=== PATIENT | female | born 1945 | race Caucasian/White ===

== ENCOUNTER → 2020-11-08 14:41 | Outpatient (CLI) | payer MEDICARE, OTHER, SELFPAY ==
--- NOTE | ~2020-11-08 | MR_ITS ---
EXAMINATION: MR lumbar spine wo con EXAM DATE: 11/08/2020 15:35 INDICATION: Lumbar radiculopathy. Left leg pain. TECHNIQUE: Multi-sequential, multiplanar MR images of the lumbar spine were obtained without contrast . Sagittal T1, T2, T2 fat saturation images. Axial T2 weighted images. There is no prior study for comparison. FINDINGS: Moderate to severe loss of the L1-L3 disc heights, mild to moderate at the levels below. Th ere is moderate thoracolumbar levoscoliosis. There are no suspicious marrow signal abnormalities. The re is 5 mm anterolisthesis L5 on S1. The conus medullaris terminates at the T12-L1 level and has norm al signal intensity and morphology. Paraspinal soft tissue is unremarkable. Level by level evaluation: T12-L1: Disc does not extend beyond the endplate margin. Facet arthropathy: Mild. Neural foraminal stenosis: No stenosis. Central canal stenosis: No stenosis. L1-L2: There is a mild diffuse disc bulge. Facet arthropathy: Mild. Neural foraminal stenosis: No stenosis. Central canal stenosis: No stenosis. L2-L3: There is a mild to moderate diffuse disc bulge. Facet arthropathy: Mild to moderate. Neural foraminal stenosis: Mild right. Central canal stenosis: Mild. L3-L4: There is a mild to moderate diffuse disc bulge. Facet arthropathy: Moderate . Ligamentum flavum enlargement. Neural foraminal stenosis: Mild bilateral. Central canal stenosis: Mild. L4-L5: [id number] Facet arthropathy: Severe . Ligamentum flavum enlargement. Neural foraminal stenosis: Moderate bilateral left greater than right. Central canal stenosis: Moderate. L5-S1: There is a moderate diffuse disc bulge. Facet arthropathy: Severe. Neural foraminal stenosis: Moderate left. Central canal stenosis: Mild to moderate. Left lateral recess stenosis. IMPRESSION: 1. Moderate thoracolumbar levoscoliosis. 2. Moderate to severe lumbar spondylosis. Reviewed, dictated and finalized at location A. T OIL OPERATOR
== END ==
PROVIDERS: Visit Provider Nurse Practitioner Adult Health
DX: M54.16 Radiculopathy, lumbar region (principal); M41.85 Other forms of scoliosis, thoracolumbar region; M47.816 Spondylosis without myelopathy or radiculopathy, lumbar region
CPT/HCPCS: 72148

== ENCOUNTER 2025-06-29 17:03 | Outpatient (NON) | payer MEDICARE, OTHER, SELFPAY ==
--- OUTSIDE RECORDS SUMMARY | 2025-06-29 17:12 | XMS_ITS | Encounter Summary ---
Author Organization [facility] Address [address] [place] [address] Phone Care Team Providers Care Clerical Transcriber Name Role Phone Rylee Jade MD Primary Care Provider Emily Gamez DO Primary Care Provider [phone] Sarah Panchal OEM SALES MANAGER Unavailable Unavailab Matteo Juarez PAC Primary Care Provider + [phone] Leeanne Epstein RN Unavailable Unavailable Reason for Visit * Reason Comments Medication Refill Encounter Details Date Type Department Care Team (Late st Contact Info) Description 06/23/2023 Refill [facility] Medical Group - Family Medicine [facility] [address] [place] [phone] Gladys Potts, HEALTH NURSE, HORSE TRAINER [address] [place] [address] Medication Refill Social History Tobacco Use Types Packs/Day Years Used Date Smoking Tobacco: Former Smokeless Tobacco: Never Alcohol Use Standard Drinks/Week Comments Yes 2 (1 standard drink = 0.6 oz pur e alcohol) socially PHQ-2 Answer Date Recorded Total Score - Questions 1-9 0 06/03 Sexually Active Control Partners Comments Not Currently Comments No Sex and Gender Information Value Date Recorded Sex Assigned at Not on file Legal Sex Female 6:56 PM CDT Gender Identity Not on file Sexual Orientation Not on file documented as of this encounter Miscellaneous Notes * Telephone Encounter - Sehr, Sasha L, RN - 06/23/2023 3:26 PM CDT Medication failed the protocol, provider to review and approve the medication order if appropriate. Requested Prescriptions Pending Prescriptions Disp Refills hydrOXYzine (ATARAX) 10 MG Tablet [Pharmacy Med Name: HYDROXYZINE HCL 10MG TABLETS] 30 Tablet 3 Sig: TAKE 1 TABLET BY MOUTH EVERY 6 HOURS NEEDED FOR ANXIETY Not Delegated - Off Protocol Failed - 06/23/2023 11:24 AM Failed - This refill cannot be delegated Passed - Visit with relevant provider in past 12 months or upcoming 90 days Recent Visits Date Type Provider Dept 03/17/23 Office Visit Gladys Potts APRN, HORSE TRAINER [facility] 10/16/22 Telemedicine Dimitris Kwok APRN, HORSE TRAINER [facility] 09/05/22 Office Visit Amberly Salazar [facility] 08/21/22 Office Visit Manny Corrigan MD [facility] [place] Showing recent visits within past 365 days and meeting all other requirements Future Appointments Date Type Provider Dept 07/17/23 Appointment Rylee Jade MD [facility] Showing future appointments within next 90 days and meeting all other requirements Escitalopram Oxalate 5 MG Tablet [Pharmacy Med Name: ESCITALOPRAM 5MG TABLETS] 90 Tablet 1 Sig: TAKE 1 TABLET BY MOUTH DAILY SSRI (6 Month Refill Only) Protocol Passed - 06/23/2023 11:43 AM Passed - Visit with relevant provider in past 6 months or upcoming 90 days Recent Visits Date Type Provider Dept 03/17/23 Office Visit Gladys Potts APRN, HORSE TRAINER [facility] Showing recent visits within past 182 days and meeting all other requirements Future Appointments Date Type Provider Dept 07/17/23 Appointment Rylee Jade MD [facility] [place] Showing future appointments within next 90 days and meeting all other requirements Passed - Patient has established therapy with SSRI for at least 6 months Passed - Has an encounter in the past 6 months with a depression, anxiety, adjustment disorder, OCD, or PTSD visit diagnosis documented in this encounter Plan of Treatment Upcoming Encounters Date Type Department Care Team (Late st Contact Info) Description 05/08/2026 8:00 AM CDT Lab [facility] [place] [address] [place] [address] [facility] 05/15/2026 1:30 PM CDT Office Visit [facility] [place] [address] [place] [address] Matteo Colon PAC [address] [place] [address] documented as of this encounter Visit Diagnoses Diagnosis Anxiety Anxiety state, unspecified documented in this encounter Additional Health Concerns Assessment Noted Time PHQ-9 Depression Total Score: 0 07/05/20 21 9:00 AM CDT documented as of this encounter Care Teams Clerical Transcriber Relationship Specialty Start Date End Date Rylee Jade MD PCP - General Family Medicine 10/10/15 03/09/24 Emily Gamez DO [address] [address] PCP - General Family Medicine 03/10/24 05/04/25 Matteo Colon PAC [address] [place] [address] PCP - General Physician Compounding Assistant 05/05/25 Sarah Panchal LSW [place] Psychologists Basket Sorter 12/06/24 12/06/24 Leeanne Epstein RN [place] Nurse Basket Sorter 06/09/25 06/09/25 documented as of this encounter
--- OUTSIDE RECORDS SUMMARY | 2025-06-29 17:12 | XMS_ITS | Encounter Summary ---
Author Organization [facility] Address [address] [place] [address] Phone Care Team Providers Care Cabinet Abrasive Sandblaster Name Role Phone Rylee Jade MD Primary Care Provider [phone] Emily Gamez DO Primary Care Provider [phone] Sarah Panchal LOTTERY MANAGER Unavailable Unavailab Matteo Juarez PAC Primary Care Provider + [phone] Leeanne Epstein RN Unavailable Unavailable Reason for Visit * Reason Comments Medication Refill Encounter Details Date Type Department Care Team (Late st Contact Info) Description 07/17/2023 Refill [facility] Medical Group - Family Medicine [facility] [address] [place] [phone] [place] [address] [place] [address] Medication Refill Social History Tobacco Use Types Packs/Day Years Used Date Smoking Tobacco: Former Smokeless Tobacco: Never Alcohol Use Standard Drinks/Week Comments Yes 2 (1 standard drink = 0.6 oz pur e alcohol) socially PHQ-2 Answer Date Recorded Total Score - Questions 1-9 0 06/03 Education Answer Date Recorded What is the highest level of school you have completed or the highest degree you have received? 12th grade 07/17/2023 Sexually Active Control Partners Comments Not Currently Comments No Sex and Gender Information Value Date Recorded Sex Assigned at Not on file Legal Sex Female 6:56 PM CDT Gender Identity Not on file Sexual Orientation Not on file COVID-19 Exposure Response Date Recorded In the last 10 days, have yo u been in contact with someone who was confirmed or suspected to have Coronavirus/COVID-19? No / Unsure 07/17/2023 10:16 AM CDT documented as of this encounter Miscellaneous Notes * Telephone Encounter - Sasha Ward RN - 07/17/2023 1:40 PM CDT Images from the original note were not included. buPROPion HCl Dispensed Days Supply Quantity Provider Pharmacy BUPROPION HYDROCHLORIDE ER (XL) 150 MG TB24 07/15/2023 90 90 Tablet Rylee Jade MD [facility] #... BUPROPION HYDROCHLORIDE ER (XL) 150 MG TB24 04/01/2023 90 90 Tablet Rylee Jade MD [facility] #... documented in this encounter Plan of Treatment Upcoming Encounters Date Type Department Care Team (Late st Contact Info) Description 05/08/2026 8:00 AM CDT Lab [facility] [place] [address] [place] [phone] [facility] 05/15/2026 1:30 PM CDT Office Visit [facility] [place] [address] [place] [address] Matteo Colon PAC [address] [place] [phone] documented as of this encounter Visit Diagnoses Diagnosis Recurrent major depressive disorder, in partial remission (HCC) documented in this encounter Additional Health Concerns Assessment Noted Time PHQ-9 Depression Total Score: 0 07/05/20 21 9:00 AM CDT documented as of this encounter Care Teams Cabinet Abrasive Sandblaster Relationship Specialty Start Date End Date Rylee Jade MD PCP - General Family Medicine 10/10/15 03/09/24 Emily Gamez DO 2 [facility] [address] [place] [address] PCP - General Family Medicine 03/10/24 05/04/25 Matteo Colon, [facility] [address] [place] [address] PCP - General Physician Health And Wellness Coordinator 05/05/25 Sarah Panchal, [place] Convict Guard Pointer Helper 12/06/24 12/06/24 Leeanne Epstein, RN [place] Nurse Pointer Helper 06/09/25 06/09/25 documented as of this encounter
--- OUTSIDE RECORDS SUMMARY | 2025-06-29 17:12 | XMS_ITS | Encounter Summary ---
Author Organization [facility] Address [address] [place] [address] Phone Care Team Providers Care Bonded Structures Repairer Name Role Phone Rylee Jade MD Primary Care Provider Emily Gamez DO Primary Care Provider [phone] Sarah Panchal LIVESTOCK BUYER Unavailable Unavailab Matteo Juarez PAC Primary Care Provider [phone] Leeanne Epstein RN Unavailable Unavailable Reason for Visit * Reason Comments Medication Refill Encounter Details Date Type Department Care Team (Late st Contact Info) Description 05/27/2023 Refill [facility] Medical Group - Family Medicine [facility] [address] [place] [phone] [place] [address] [place] [phone] Medication Refill Social History Tobacco Use Types [...] suspected to have Coronavirus/COVID-19? No / Unsure 05/10/2023 11:48 AM CDT documented as of this encounter Miscellaneous Notes * Telephone Encounter - Sasha Ward RN - 05/27/2023 2:01 PM CDT Medication failed the protocol, provider to review and approve the medication order if appropriate. Requested Prescriptions Pending Prescriptions Disp Refills diphenoxylate-atropine (LOMOTIL) 2.5-0.025 MG Tablet [Pharmacy Med Name: DIPHENOXYLATE/ATROPINE 2.5MG TABS] 60 Tablet Sig: TAKE 1 TABLET BY MOUTH TWICE DAILY NEEDED FOR DIARRHEA Not Delegated - Anti-Diarrheals Protocol Failed - 05/27/2023 10:52 AM Failed - This refill cannot be delegated Passed - Visit with relevant provider in past 12 months or upcoming 90 days Recent Visits Date Type Provider Dept 03/17/23 Office Visit Gladys Potts APRN, TECHNICAL SOLUTIONS CONSULTANT [facility] 10/16/22 Telemedicine Dimitris Kwok APRN, JUL[facility] 09/05/22 Office Visit Amberly Salazar PAC [facility] 08/21/22 Office Visit Manny Corrigan MD [facility] [place] 06/12/22 Office Visit Amberly Salazar, [facility] [place] Showing recent visits within past 365 days and meeting all other requirements Future Appointments Date Type Provider Dept 07/17/23 Appointment Rylee Jade MD [facility] [place] Showing future appointments within next 90 days and meeting all other requirements documented in this encounter Plan of Treatment Upcoming Encounters Date Type Department Care Team (Late st Contact Info) Description 05/08/2026 8:00 AM CDT Lab [facility] [address] [address] [facility] 05/15/2026 1:30 PM CDT Office Visit [facility] [place] [address] [place], [place] [address] [place] [phone] Matteo Colon, PAC [address] [place] [address] documented as of this encounter Visit Diagnoses Diagnosis Irritable bowel syndrome with diarrhea Irritable bowel syndrome documented in this encounter Additional Health Concerns Assessment Noted Time PHQ-9 Depression Total Score: 0 07/05/20 21 9:00 AM CDT documented as of this encounter Care Teams Bonded Structures Repairer Relationship Specialty Start Date End Date Rylee Jade MD PCP - General Family Medicine 10/10/15 03/09/24 Emily Gamez DO [address] [address] PCP - General Family Medicine 03/10/24 05/04/25 Matteo Colon, PAC [address] [place] [address] PCP - General Physician Django Developer 05/05/25 Sarah Panchal LSW [place] Machine Egg Washer Degreasing Wheel Operator 12/06/24 12/06/24 Leeanne Epstein, RN [place] Nurse Degreasing Wheel Operator 06/09/25 06/09/25 documented as of this encounter
--- OUTSIDE RECORDS SUMMARY | 2025-06-29 17:12 | XMS_ITS | Clinical Summary ---
Author Organization [facility] Address [address] [place] [address] Care Team Providers Care Pole Inspector Name Role Phone Matteo Colon Primary Care Provider [phone] Source Comments [facility],non-owned Affiliates and Associated Physician Practices is amultiple site organization consisting of ambulatory clinics and hospital sitesin [place], [place], [place] and [place]. This disclosure is being madepursuant to the Care Everywhere program and may not contain all information available regarding this patient. Last updated 18.[facility] Allergies Active Allergy Reactions Criticality Noted Date Comments Codeine 05/15/2015 tachycardia Morphine 05/15/2015 Nausea Medications * Be aware that medications may not be up to date on this document. Alwaysverify current medications with the patient. celecoxib (CELEBREX) 200 MG capsule Take 200 mg by mouth 2 times daily Active hydroxychloroqui ne (PLAQUENIL) 200 MG tablet Take 200 mg by mouth once daily Active lisinopril (PRINIVIL;ZESTRI L) 5 MG tablet Take 5 mg by mouth once daily Active buPROPion SR 12hr (WELLBUTRIN-SR) 150 MG tablet Take 150 mg by mouth 2 times daily Active folic acid (FOLVITE) 1 MG tablet Take 1 mg by mouth once daily Active hyoscyamine CR 12hr (LEVBID) 0.375 MG tablet Take 0.375 mg by mouth every 12 hours Active therapeutic multivitamin-min erals (THERAGRAN-M) tablet Take 1 Tab by mouth daily with food Active calcium citrate-vitamin D (CITRACAL PLUS D) 315-200 MG-UNIT tablet Take 1 Tab by mouth once daily Active vitamin D, cholecalciferol, 1000 UNITS tablet Take by mouth once daily Active aspirin (ASPIRIN) 81 MG chew tablet Take 81 mg by mouth once daily Active Encounters Date Type Department Care Team Description 05/16/2025 4:10 PM CDT Office Visit [facility] [address] [facility] [place] [address] [place] [phone] Jose Martin Quintero MD Right knee pain, unspecified chronicity (Primary Dx) 05/16/2025 3:55 PM CDT Ancillary Procedure [facility] - Radiology [address] [place] [address] Jose Martin Quintero MD Right knee pain, unspecified chronicity from Last 3 Months Social History Tobacco Use Types Packs/Day Years Used Date Smoking Tobacco: Some Days Alcohol Use Standard Drinks/Week Comments No 0 (1 standard drink = 0.6 oz pur e alcohol) Comments Unknown Sex and Gender Information Value Date Recorded Sex Assigned at Not on file Legal Sex Female 4:56 AM CONTRACT ATTORNEY Gender Identity Not on file Sexual Orientation Not on file Last Filed Vital Signs Vital Sign Reading Time Taken Comments Blood Pressure 133/62 05/15/2015 3:39 PM CDT Pulse 87 05/15/2015 3:39 PM CDT Temperature 36.8 C (98.3 F) 05/15/2015 3:39 PM CDT Respiratory Rate 16 05/15/2015 3:39 PM CDT Oxygen Saturation 100% 05/15/2015 3:39 PM CDT Inhaled Oxygen Concentration - - Weight 78 kg (172 lb) 05/15/2015 3:39 PM CDT Height 165.1 cm (5' 5) 05/15/2015 3:39 PM CDT Body Mass Index 28.62 05/15/2015 3:39 PM CDT Plan of Treatment Health Maintenance Due Date Last Done Comments MEDICARE AWV 12 MONTHS 1945 DTAP/TDAP/TD VACCINES (1 - Tdap) 1965 PNEUMOCOCCAL VACCINE 50+ (1 of 2 - PCV) 1965 ZOSTER VACCINE (1 of 2) 1996 Respiratory Syncytial Virus (RSV) Vaccine Pt: or over 60 yrs (1 - 1-dose 75+ series) 2021 COVID-19 VACCINE (3 - 4-25 season) 2024 01/18/2021, 12/26/2020 DEPRESSION SCREENING 11/03/2024 INFLUENZA VACCINE (#1) 2025 , 08/11/2020, 08/28/2019, Additional history exists BONE DENSITY TESTING Completed 09/21/2013 HEPATITIS C SCREENING Completed 07/23/2023 HEPATITIS B VACCINE Aged Out No longe r eligible based on patient's age to complete this topic HIB VACCINE Aged Out No longer eligi ble based on patient's age to complete this topic HPV VACCINE Aged Out No longer eligi ble based on patient's age to complete this topic MENINGOCOCCAL (Group B) VACCINE SHARED DECISION-MAKING Aged Out No longer eligible based on patient's age to complete this topic MENINGOCOCCAL GROUPS A/C/Y/W VACCINE Aged Out No longer eligible based on patient's age to complete this topic Procedures Procedure Name Priority Date/Time Associated Diagnosis Comments XR KNEE RIGHT 3VW Routine 05/16/2025 4:1 0 PM CDT Right knee pain, unspecified chronicity from Last 3 Months Results * XR Knee Right 3Vw (05/16/2025 4:10 PM CDT) Narrative [facility] [address] - 05/16/2025 4:10 PM CDT Please see progress note in Epic for results. us Jose Martin Quintero MD DIAGNOSTIC IMAGING ORDERABLES Final Result [facility] [place] [address] from Last 3 Months Insurance MEDICARE [employer] MEDICARE [employer] Care Teams Pole Inspector Relationship Specialty Start Date End Date Matteo Colon [address] [place] [address] PCP - General 05/11/25
--- OUTSIDE RECORDS SUMMARY | 2025-06-29 17:12 | XMS_ITS | Encounter Summary ---
Author Organization [facility] Address [address] [place] [address] Phone Care Team Providers Care Poultry Inseminator Name Role Phone Rylee Jade MD Primary Care Provider Emily Gamez DO Primary Care Provider [phone] Sarah Panchal VMWARE ENGINEER Unavailable Unavailab Matteo Juarez PAC Primary Care Provider [phone] Leeanne Epstein RN Unavailable Unavailable Reason for Visit * Reason Comments Medication Refill Encounter Details Date Type Department Care Team (Late st Contact Info) Description 01/31/2023 Refill [facility] Medical Group - Family Medicine [facility] [address] [place] [phone] [place] [address] [place] [address] Medication Refill Social History Tobacco Use Types [...] Telephone Encounter - Sasha Ward RN - 01/31/2023 1:16 PM CDT Medication failed the protocol, provider to review and approve the medication order if appropriate. Requested Prescriptions Pending Prescriptions Disp Refills hydrOXYzine (ATARAX) 10 MG Tablet [Pharmacy Med Name: HYDROXYZINE HCL 10MG TABLETS] 30 Tablet 1 Sig: TAKE 1 TABLET BY MOUTH EVERY 6 HOURS NEEDED FOR ANXIETY Not Delegated - Off Protocol Failed - 01/31/2023 11:01 AM Failed - This refill cannot be delegated Passed - Visit with relevant provider in past 12 months or upcoming 90 days Recent Visits Date Type Provider Dept 10/16/22 Telemedicine Dimitris Kwok APRN, JUL[facility] [place] 09/05/22 Office Visit Amberly Salazar PAC [facility] [place] 08/21/22 Office Visit Manny Corrigan MD [facility] [place] 06/12/22 Office Visit Amberly Salazar PAC [facility] Showing recent visits within past 365 days and meeting all other requirements Future Appointments No visits were found meeting these conditions. Showing future appointments within next 90 days and meeting all other requirements documented in this encounter Plan of Treatment Upcoming Encounters Date Type Department Care Team (Late st Contact Info) Description 05/08/2026 8:00 AM CDT Lab [facility] [address] [place] [phone] [facility] 05/15/2026 1:30 PM CDT Office Visit [facility] [place] [address] [place] [phone] Matteo Colon PAC [address] [place] [address] documented as of this encounter Visit Diagnoses Diagnosis Anxiety Anxiety state, unspecified documented in this encounter Additional Health Concerns Infection Onset Date Last Indicated Resolved Time Respiratory Rule Out - RPA 02/18/2023 02/18/2023 0 02/18/2023 8:56 AM CDT Assessment Noted Time PHQ-9 Depression Total Score: 0 07/05/20 21 9:00 AM CDT documented as of this encounter Care Teams Poultry Inseminator Relationship Specialty Start Date End Date Rylee Jade MD PCP - General Family Medicine 10/10/15 03/09/24 Emily Gamez DO 2 [facility] [address] [place] [address] PCP - General Family Medicine 03/10/24 05/04/25 Matteo Colon, PAC [address] [place] [phone] PCP - General Physician Firer Portable Boiler 05/05/25 Sarah Panchal, VMWARE ENGINEER [place] Chefs Outdoor Studies Professor 12/06/24 12/06/24 Leeanne Epstein, RN [place] Nurse Outdoor Studies Professor 06/09/25 06/09/25 documented as of this encounter
--- OUTSIDE RECORDS SUMMARY | 2025-06-29 17:12 | XMS_ITS | Clinical Summary ---
Author Organization [facility] Address [address] [place] [address] Phone Care Team Providers Care [employer] Resource Teacher Name Role Phone [facility], External Provider Primary Care Provider U navailable Allergies Active Allergy Reactions Criticality Noted Date Comments Codeine Other (See Comments) 09/02/2010 Morphine Nausea and Vomiting Low 05/22/2013 Medications buPROPion XL 24 hour (WELLBUTRIN XL) 150 mg Oral tablet Take 300 mg by mouth daily mailroom courier. Active hyoscyamine SR 12 hour (LEVSINEX) 0.375 mg Oral capsule Take 0.375 mg by mouth 2 times daily as needed. Active olopatadine (PATADAY) 0.2 % OP solution Administer 1 Drop in both eyes daily. Active multivitamins-m inerals-lutein (CENTRUM SILVER) Oral Tab Take 1 Tab by mouth daily. Active Cholecalciferol , Vitamin D3, 1,000 unit Oral Tab Take by mouth. Activ e aspirin (WILFRID) 81 mg Oral Tab Take 81 mg by mouth daily. Active hydroxychloroqu ine (PLAQUENIL) 200 mg Oral tablet Take 200 mg by mouth 2 times daily. Active ibuprofen (MOTRIN) 800 mg Oral tablet Take 1 Tab by mouth every 8 hours as needed for Pain. 25 Tab 0 0 Active CELECOXIB (CELEBREX ORAL)Indication s:arthritis Take 200 mg by mouth daily. Indications: ARTHRITIS Active diphenhydrAMINE (BENADRYL) 25 mg Oral tablet Take 50 mg by mouth nightly as needed. Active estradiol-noret hindrone Acet (ACTIVELLA) 1-0.5 mg Oral tablet Take 1 Tab by mouth daily. Active OTHER Take 300 mg by mouth daily. Provider please include Medication name, dose, route and frequency Active oxyCODONE-aceta minophen (PERCOCET) 5-325 mg Oral tablet Take 1 Tab by mouth every 6 hours as needed for Pain. 15 Tab 0 3 Active Active Problems Problem Noted Date Diagnosed Date Diverticulitis of sigmoid colon 05/22/2013 Overview (05/23/2013): 05/23/2013: diverticulosis noted on CT scan 05/22/2013, bland diet, metronidazole and levafloxacin x 1 week with Percocet PRN for pain, will need outpt follow up for colonoscopy in 8 weeks Sjogren's syndrome 09/02/2010 Overview (05/23/2013): 05/23/2013: hydroxychloroquine 200 mg BID, outpt follow up with Dr Song and Opthalmology Depression 09/02/2010 Overview (05/23/2013): 05/23/2013: bupropion XL daily IBS (irritable bowel syndrome) Overview (05/23/2013): 05/23/2013: PRN hyoscyamine Arthritis Resolved Problems Problem Noted Date Diagnosed Date Resolved Date Left hip pain 09/02/2010 05/22/2013 Nausea & vomiting 09/02/2010 05/22/2013 Immunizations Immunization Administration Dates Next Due Influenza Seasonal Unspecified Formulation IM Pneumococcal conjugate, unspecified formulation 07/24/2012 Family History Medical History Relation Name Comments Diabetes Brother Healthy Daughter 1 Other Daughter 2 anorexia Healthy Daughter 3 Other Father Other Mother Healthy Sister Relation Name Status Comments Brother Alive Daughter 1 Alive Daughter 2 Daughter 3 Alive Father Mother Sister Alive Social History Tobacco Use Types Packs/Day Years Used Date Smoking Tobacco: Former Comments:twenty four years a go Alcohol Use Standard Drinks/Week Comments No 0 (1 standard drink = 0.6 oz pur e alcohol) Comments No Sex and Gender Information Value Date Recorded Sex Assigned at Not on file Legal Sex Female 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 Gender Identity Not on file Sexual Orientation Not on file Occupation Industry Job Start Date Job End Date Not on file Not on file Not on file Not on file Last Filed Vital Signs Vital Sign Reading Time Taken Comments Blood Pressure 129/69 05/23/2013 2:40 PM CDT Pulse 69 05/23/2013 2:40 PM CDT Temperature 36.6 C (97.9 F) 05/23/2013 2:40 PM CDT Respiratory Rate 18 05/23/2013 2:40 PM CDT Oxygen Saturation 99% 05/23/2013 2:40 PM CDT Inhaled Oxygen Concentration - - Weight 83.5 kg (184 lb) 05/22/2013 12:03 PM CDT Height 162.6 cm (5' 4) 05/22/2013 12:03 PM CDT Body Mass Index 31.58 05/22/2013 12:03 PM CDT Plan of Treatment Health Maintenance Due Date Last Done Comments DTAP/TDAP/TD VACCINES (1 - Tdap) 1964 PNEUMOCOCCAL VACCINE 50+ YEARS (1 of 2 - PCV) 07/29/19 65 07/24/2012 ZOSTER VACCINE (1 of 2) 1965 OSTEOPOROSIS SCREENING 2011 RSV VACCINE (60+ or ) (1 - 1-dose 75+ series) 2021 INFLUENZA VACCINE (#1) 2025 07/24/2012 Insurance MEDICARE PART A AND B [employer] Advance Directives For more information, please contact: [phone] * Full Code (Latest Code Status on File) Date Activated Date Inactivated Comments 05/22/2013 2:28 PM 05/23/2013 8:53 PM * Full Code Date Activated Date Inactivated Comments 09/02/2010 8:43 PM 09/03/2010 6:31 PM Care Teams [employer] Resource Teacher Relationship Specialty Start Date End Date [facility], External Provider [address] [place] [address] PCP - General 05/22/13
--- OUTSIDE RECORDS SUMMARY | 2025-06-29 17:13 | XMS_ITS | Encounter Summary ---
Author Organization [facility] Address [address] [place] [address] Phone Care Team Providers Care Chemical Dependency Professional Name Role Phone Rylee aJde MD Primary Care Provider [phone] Emily Gamez DO Primary Care Provider [phone] Sarah Panchal GOLF CLUB MANAGER Unavailable Unavailab Matteo Juarez PAC Primary Care Provider + [phone] Leeanne Epstein RN Unavailable Unavailable Reason for Visit * Reason Comments Medication Refill Encounter Details Date Type Department Care Team (Late st Contact Info) Description 01/29/2024 Refill [facility] - Family Medicine [facility] [address] [place] [phone] [place] [id number] [phone] Medication Refill Social History Tobacco Use Types [...] Telephone Encounter - Sasha Ward RN - 01/29/2024 11:49 AM CDT Images from the original note were not included. buPROPion HCl Dispensed Days Supply Quantity Provider Pharmacy BUPROPION HYDROCHLORIDE ER (XL) 150 MG TB24 01/25/2024 90 90 Tablet Rylee Jade MD [facility]... BUPROPION HYDROCHLORIDE ER (XL) 150 MG TB24 10/16/2023 90 90 Tablet Rylee Jade MD [facility] #... documented in this encounter Plan of Treatment Upcoming Encounters Date Type Department Care Team (Late st Contact Info) Description 05/08/2026 8:00 AM CDT Lab [facility] [place] [address] [place] [phone] [facility] 05/15/2026 1:30 PM CDT Office Visit [facility] [place] [address] [place] [address] Matteo Colon PAC [address] [place] [phone] documented as of this encounter Visit Diagnoses Diagnosis Recurrent major depressive disorder, in partial remission (HCC) documented in this encounter Additional Health Concerns Assessment Noted Time PHQ-9 Depression Total Score: 0 07/05/20 21 9:00 AM CDT documented as of this encounter Care Teams Chemical Dependency Professional Relationship Specialty Start Date End Date Rylee Jade MD PCP - General Family Medicine 10/10/15 03/09/24 Emily Gamez DO 2 [facility] [address] [address] PCP - General Family Medicine 03/10/24 05/04/25 Matteo Colon, [facility] [address] [place] [address] PCP - General Physician Horizontal Drill Operator 05/05/25 Sarah Panchal, [place] Supervisor Logging Telephone Sex Worker 12/06/24 12/06/24 Leeanne Epstein, RN [place] Nurse Telephone Sex Worker 06/09/25 06/09/25 documented as of this encounter
--- OUTSIDE RECORDS SUMMARY | 2025-06-29 17:13 | XMS_ITS | Encounter Summary ---
Author Organization [facility] Address [address] [place] [address] Phone Care Team Providers Care Warehouse Manager Name Role Phone Rylee Jade MD Primary Care Provider Emily Gamez DO Primary Care Provider [phone] Sarah Panchal TOLL COLLECTOR Unavailable Unavailab Matteo Juarez PAC Primary Care Provider + [phone] Leeanne Epstein RN Unavailable Unavailable Reason for Visit * Reason Comments Medication Refill Encounter Details Date Type Department Care Team (Late st Contact Info) Description 09/07/2022 Refill [facility] Medical [facility] - Family Medicine [facility] [address] [place] [address] Amberly Salazar PAC [address] [place] [address] Medication Refill Social History Tobacco Use Types [...] Recorded In the last 10 days, have scar redding been in contact with someone who was confirmed or suspected to have Coronavirus/COVID-19? No / Unsure 09/05/2022 2:43 PM CDT documented as of this encounter Miscellaneous Notes * Telephone Encounter - Ynes Diaz, RN - 09/09/2022 8:45 AM JET OPERATOR Refilled 09/05/2022 OPERATOR documented in this encounter Plan of Treatment Upcoming Encounters Date Type Department Care Team (Late st Contact Info) Description 05/08/2026 8:00 AM CDT Lab [facility]note 3[facility] - [place] [address] [place] [phone] [facility] 05/15/2026 1:30 PM CDT Office Visit [facility]note 3[facility] - [place] [address] [place] [address] Matteo Colon, PAC [address] [place] [address] documented as of this encounter Visit Diagnoses Diagnosis Anxiety Anxiety state, unspecified documented in this encounter Additional Health Concerns Infection Onset Date Last Indicated Resolved Time Respiratory Rule Out - RPA 02/18/2023 02/18/2023 0 02/18/2023 8:56 AM CDT Assessment Noted Time PHQ-9 Depression Total Score: 0 07/05/20 21 9:00 AM CDT documented as of this encounter Care Teams Warehouse Manager Relationship Specialty Start Date End Date Rylee Jade MD PCP - General Family Medicine 10/10/15 03/09/24 Emily Gamez DO [address] [place] [address] [address] PCP - General Family Medicine 03/10/24 05/04/25 Matteo Colon, PAC [address] [place] [phone] PCP - General Physician Director Inbound Sales 05/05/25 Sarah Panchal LSW [place] Pole Framer Machine Car Record Clerk 12/06/24 12/06/24 Leeanne Epstein, RN [place] Nurse Car Record Clerk 06/09/25 06/09/25 documented as of this encounter
--- OUTSIDE RECORDS SUMMARY | 2025-06-29 17:13 | XMS_ITS | Clinical Summary ---
Author Organization [facility] Address [address], [facility] [address] [place] [address] Phone Care Team Providers Care Bindery Machine Feeder Offbearer Name Role Phone ColonMatteo Bia PAC Primary Care Provider [phone] Allergies Active Allergy Reactions Criticality Noted Date Comments Azithromycin Other (see Comments) 10/06/2015 Stomach pain Codeine Nausea,Rash,Vomiting , Other (see Comments) Low 10/06/2015 Reaction: n, v, , , Reaction: n, v, , , Morphine Nausea,Vomiting,Othe r (see Comments) Low 10/06/2015 Reaction: n, v, , morphine Morphine And Codeine Nausea Medications lisinopril (PRINIVIL, ZESTRIL) 5 MG Tablet Take 5 mg by mouth daily. Active Aspirin 81 MG Tablet Take 81 mg by mouth daily. Active albuterol (PROVENTIL HFA, VENTOLIN HFA) 108 (90 Base) MCG/ACT Aerosol SolutionIndicat ions:Acute bronchitis, unspecified organism take 2 Puffs by inhalation every 4 hours as needed for Wheezing. 8.5 g 0 7 Active Multiple Vitamin (MULTIVITAMINS PO) Take by mouth. Activ e abatacept (ORENCIA) 250 MG Recon Soln 750 mg by Intravenous route every 28 days. Hazardous: Medication requires special safe handling and disposal. Active hyoscyamine (LEVBID) 0.375 MG TABLET SR 12 HR Take 375 mcg by mouth every 12 hours as needed. Active Calcium Citrate-Vitamin D (CITRACAL + D PO) Take by mouth. Activ e celecoxib (CeleBREX) 200 MG Capsule Take 200 mg by mouth 2 times daily. Active fluticasone (FLONASE) 50 MCG/ACT Suspension 1-2 Sprays by Nasal route daily. Use in each nostril as directed. 48 mL 1 3 Active Xiidra 5 % Solution 3 Active betamethasone dipropionate, augmented, (DIPROLENE-AF) 0.05 % Cream 3 Active hydrOXYzine (ATARAX) 10 MG TabletIndicatio ns:Anxiety Take 1 Tablet by mouth every 6 hours as needed for Anxiety. 30 Tablet 3 3 Active dicyclomine (BENTYL) 20 MG Tablet Take 20 mg by mouth every 6 hours. Active triamcinolone (KENALOG) 0.1 % Cream Apply 2 times daily. 4 Active escitalopram (LEXAPRO) 10 MG Tablet Take 1 Tablet by mouth daily. 90 Tablet 1 5 Active traMADol (ULTRAM) 50 MG TabletIndicatio ns:Rheumatoid arthritis involving multiple sites with positive rheumatoid factor (HCC) Take 1 Tablet by mouth daily as needed for Severe pain. 30 Tablet 5 Active diphenoxylate-a tropine (LOMOTIL) 2.5-0.025 MG TabletIndicatio ns:Irritable bowel syndrome with diarrhea Take 1 Tablet by mouth 4 times daily as needed for Diarrhea. 60 Tablet 5 Active chlordiazePOXID E-clidinium (LIBRAX) 5-2.5 MG CapsuleIndicati ons:Irritable bowel syndrome with diarrhea Take 1 Capsule by mouth 4 times daily (before meals and nightly). 30 Capsule 5 Active cycloSPORINE (RESTASIS) 0.05 % Emulsion 5 Active famotidine (PEPCID) 40 MG Tablet 5 Active buPROPion (WELLBUTRIN) 150 MG XL tabletIndicatio ns:Recurrent major depressive disorder, in partial remission (HCC) Take 1 Tablet by mouth every morning. 90 Tablet 1 5 Active cephALEXin (KEFLEX) 500 MG CapsuleIndicati ons:Skin of left earlobe with infection Take 1 Capsule by mouth 2 times daily for 7 days. 14 Capsule 5 06/04/20 25 Active Problems Problem Noted Date Diagnosed Date Recurrent major depressive disorder, in partial remission 05/17/2019 Sjogren's disease 10/12/2015 Overview (02/16/2018): Dr Wesley Song ([place]; [facility]) Sicca syndrome 10/12/2015 Rheumatoid arthritis involvi ng multiple sites with positive rheumatoid factor 10/12/2015 IBS (irritable bowel syndrome) 10/12/2015 Essential hypertension 10/12/2015 Vitreous detachment of left eye 10/12/2015 Encounters Date Type Department Care Team Description 06/09/2025 Patient Outreach [facility] Mammography Supervisor Management [address] [place] [id number] Leeanne Epstein, DANIEL Patient Outreach (High Risk MSSP) 05/28/2025 1:05 PM CDT Urgent Care Visit [facility] - [address] [place] [phone] Marcie Otto, SECONDARY HISTORY TEACHER, FOREIGN EXCHANGE TRADER Skin of left earlobe with infection (Primary Dx) Discharge Disposition: Discharged to home or Selfcare 05/28/2025 Travel 05/12/2025 Refill [facility] [address] [place] [phone] Matteo Colon, PAC Medication Refill 05/10/2025 Results Follow-Up [facility] [address] [place] [phone] Matteo Colon, PAC CMP (COMPREHENSIVE METABOLIC PANEL), LIPID PANEL, CBC WITH AUTO DIFFERENTIAL, THYROID SCREEN WITH REFLEX 05/09/2025 8:20 AM CDT [facility] [place] [phone] Lab, [facility] Essential hypertension; Encounter for lipid screening for cardiovascular disease Discharge Disposition: Discharged to home or Selfcare 05/09/2025 Travel 05/05/2025 1:30 PM CDT Office Visit [facility] [place] [address] [place] [place] [phone] Matteo Colon PAC Rheumatoid arthritis involving multiple sites with positive rheumatoid factor (HCC) (Primary Dx); Irritable bowel syndrome with diarrhea; Essential hypertension; Chronic pain of right knee; Encounter for lipid screening for cardiovascular disease; Encounter for immunization Discharge Disposition: Discharged to home or Selfcare 05/05/2025 Travel 04/26/2025 Telephone [facility] [place] [address] [place] [address] Matteo Colon PAC 04/01/2025 11:30 AM CDT Office Visit [facility] [place] [address] [place] [phone] Gladys Potts, SECONDARY HISTORY TEACHER, FOREIGN EXCHANGE TRADER Rheumatoid arthritis involving multiple sites with positive rheumatoid factor (HCC) (Primary Dx); Irritable bowel syndrome with diarrhea; Anxiety Discharge Disposition: Discharged to home or Selfcare 04/01/2025 Travel from Last 3 Months Immunizations Immunization Administration Dates Next Due Covid-19, Mrna, Lnp-s, Pf, 3 0 Mcg/0.3 Ml Dose (CopaCast) 01/18/2021,12/26/2020 Influenza Vaccine 08/11/2020,07/15/2017 Influenza Vaccine greater than 3 yrs 08/11/2020, 09/15/2015,07/24/2012 Influenza, High-dose, Quadrivalent 08/05/2023,,08/11/2020 Influenza, Quadrivalent, Adjuvanted 09/17/2021 Influenza, Seasonal, Injecta ble, Undefined 08/03/2018,09/05/2013,07/24/2012 Influenza, Trivalent, Adjuvanted, PF 08/06/2018 Influenza, high-dose, trivalent, PF 10/03/2024,08/28/2019,07/17/2017,08/10,08/09/2016,09/14/2015,08/13/2014 Pneumococcal PCV, Unspecifie d Formulation 07/24/2012 Pneumococcal Vaccine Adult - 23 Valent 3,07/24/2012 Pneumococcal conjugate PCV20 , polysaccharide [id number] conjugate, adjuvant, PF 05/05/2025 RSV, Bivalent, Protein Subun it Rsvpref, Diluent Reconstit (Abrysvo) 08/05/2023 TDAP Vaccine 01/30/2024,04/16/2021,08/28/2019 Tetanus Toxoid, Unspecified Formulation 04/03/2008 Zoster Vaccine Recombinant 12/04/2020,08/11/2020 Zoster Vaccine, live 08/03/2014 Family History Medical History Relation Name Comments Diabetes Brother Dementia Father Dementia Mother Relation Name Status Comments Brother Alive Father Mother Social History Tobacco Use Types Packs/Day Years Used Date Smoking Tobacco: Former Passive Smoke Exposure: Past Smokeless Tobacco: Never Tobacco Cessation:Counseling Given: No Alcohol Use Standard Drinks/Week Comments Yes 2 (1 standard drink = 0.6 oz pur e alcohol) socially [employer] Utilities Answer Date Recorded In the past 12 months has e [employer] gas, oil, or water company threatened to shut off services in your home? Patient declined 03/02/2024 Social Connection and Isolation Panel Answer Date Recorded In a typical week, how many times do you talk on the phone with family, friends, or neighbors? Patient declined 03/02/2024 Frequency of Social Gatherings with Friends and Family Not on file 03/02/2024 Attends Alevism Services Not on file 03/02 Active Member of Clubs or Organizations Not on f ile 03/02/2024 Attends Club or Organization Meetings Not on yokasta e 03/02/2024 Marital Status Not on file 03/02/2024 AUDIT-C Answer Date Recorded Q1: How often do you have a drink containing alc ohol? Patient declined 03/02/2024 Average Number of Drinks Not on file 024 Frequency of Binge Drinking Not on file 02/03 Overall Financial Resource Strain (CARDIA) Answe r Date Recorded How hard is it for you to pa y for the very basics like food, housing, medical care, and heating? Not hard at all 03/02/2024 PHQ-2 Answer Date Recorded Total Score - Questions 1-9 3 03/05 [facility] - Occupational Stress Questionnaire Answer Date Recorded Do you feel stress - tense, restless, nervous, or anxious, or unable to sleep at night because your mind is troubled all the time - these days? Patient declined 03/02/2024 Exercise Vital Sign Answer Date Recorde d On average, how many days pe r week do you engage in moderate to strenuous exercise (like a brisk walk)? 0 days Minutes of Exercise per Session Not on file 03/02/2024 Hunger Vital Sign Answer Date Recorded Within the past 12 months, y ou worried that your food would run out before you got the money to buy more. Patient declined Within the past 12 months, t he food you bought just didn't last and you didn't have money to get more. Patient declined PRAPARE - Transportation Answer Date Re corded Lack of Transportation (Medical) Not on file 03/02/2024 In the past 12 months, has l ack of transportation kept you from meetings, work, or from getting things needed for daily living? No 03/02/2024 Housing Stability Vital Sign Answer Christopher e Recorded In the last 12 months, was t here a time when you were not able to pay the mortgage or rent on time? No 03/02/20 24 Number of Places Lived in the Last Year Not on f ile 03/02/2024 In the last 12 months, was t here a time when you did not have a steady place to sleep or slept in a usp (including now)? Patient declined 03/02/2024 Education Answer Date Recorded What is the [...] Sign Reading Time Taken Comments Blood Pressure 139/80 05/28/2025 1:05 PM CDT Pulse 93 05/28/2025 1:05 PM CDT Temperature 36.9 C (98.5 F) 05/28/2025 1:05 PM CDT Respiratory Rate 16 05/28/2025 1:05 PM CDT Oxygen Saturation 96% 05/28/2025 1:05 PM CDT Inhaled Oxygen Concentration - - Weight 79.4 kg (175 lb) 05/05/2025 1:34 PM CDT Height 167.6 cm (5' 6) 05/05/2025 1:34 PM CDT Body Mass Index 28.25 05/05/2025 1:34 PM CDT Plan of Treatment Upcoming Encounters Date Type Department Care Team (Late st Contact Info) Description 05/08/2026 8:00 AM CDT Lab [facility] [place] [address] [place] [address] [facility] 05/15/2026 1:30 PM CDT Office Visit [facility] [address] [place] [address] Matteo Colon PAC [address] [place] [address] Health Maintenance Due Date Last Done Comments DEXA Bone Density 11/09/2020 11/09/2018, 09/21/2013 SARS-COV-2 Immunization ( season) 2024 10/26/2021, 01/18/2021, 12/26/2020 Influenza Immunization (#1) 07/04/202503/2024, 08/05/2023, 08/20/2022, Additional history exists Td Immunization Every 10 Years (Adults With 1 Tdap) 01/29/2034 01/30/2024, 04/16/2021, 08/28/2019 Zoster Immunization Completed 12/04/2020, 08/11/2020, 08/03/2014 Colonoscopy Discontinued 07/04/2023, 1212/2021, 12/01/2014 Colorectal Cancer Screening Discontinued Hepatitis C Virus (HCV) Screening Completed 07/23/2023, 07/09/2022, 08/08/2021 Respiratory Syncytial Virus (RSV) Immunization (Adult) Completed 08/05/2023 Mammogram Discontinued 06/16/2024, 11/03, 11/21/2022, Additional history exists Pneumococcal Immunization (50+ years) Completed 05/05/2025, 09/05/2013, 07/24/2012, Additional history exists Pneumococcal Immunization Combined Discontinued 05/05/2025, 09/05/2013, 07/24/2012, Additional history exists Cologuard Discontinued Hepatitis B Immunization Aged Out No longer eligible based on patient's age to complete this topic Human Papillomavirus (HPV) Immunization Aged Out No longer eligible based on patient's age to complete this topic Immunochemical Fecal Occult Blood Discontinued Meningococcal Immunization (ACWY) Aged Out No longer eligible based on patient's age to complete this topic Rotavirus Immunization Aged Out No lo nger eligible based on patient's age to complete this topic Procedures Procedure Name Priority Date/Time Associated Diagnosis Comments THYROID SCREEN WITH REFLEX Routine 05/09/2025 7:55 AM CDT Essential hypertension CBC WITH AUTO DIFFERENTIAL Today 05/09/2025 7:55 AM CDT Essential hypertension THYROID SCREEN WITH REFLEX Routine 05/09/2025 7:55 AM CDT Essential hypertension LIPID PANEL Today 05/09/2025 7:55 AM CDT Encounter for lipid screening for cardiovascular disease CMP (COMPREHENSIVE METABOLIC PANEL) Routine 05/09/2025 7:55 AM CDT Essential hypertension COMPLETE BLOOD COUNT (CBC) WITH DIFF Today 05/09/2025 7:55 AM CDT Essential hypertension MAMMOGRAM BILATERAL GENERIC 11/21/2022 12:00 AM DRIER AND GRINDER TENDER HM COLONOSCOPY 10/04/2022 12:00 AM DRIER AND GRINDER TENDER DEXA SCAN Routine 11/09/2018 from Last 3 Months or Most Recently Relevant to Health Maintenance Results * THYROID SCREEN WITH REFLEX (05/09/2025 7:55 AM CDT) TSH 1.763 0.300 - 5.000 mIU/L 05/09/2025 1:39 PM CDT [facility] Blood Venipuncture / Unknown 05/09/2025 7:55 AM CDT 05/09/2025 7:55 AM CDT us Matteo Colon PAC CHEMISTRY ORDERABLES Final R esult [facility] [address] [place] [address] * (ABNORMAL) CBC WITH AUTO DIFFERENTIAL (05/09/2025 7:55 AM CDT) WBC 4.47 4.00 - 12.00 10(3)/mcL 05/09/2025 12:59 PM CDT [facility] RBC 4.41 3.80 - 5.30 10(6)/mcL 05/09/2025 12:59 PM CDT [facility] HEMOGLOBIN (HGB) 13.2 12.0 - 15.8 g/dL 05/09/2025 12:59 PM CDT [facility] HEMATOCRIT (HCT) 40.7 36.0 - 47.0 % 05/09/2025 12:59 PM CDT [facility] MCV 92.3 82.0 - 96.0 fL 05/09/2025 12:59 PM CDT [facility] MCH 29.9 26.0 - 34.0 pg 05/09/2025 12:59 PM CDT [facility] MCHC 32.4 31.0 - 36.0 g/dL 05/09/2025 12:59 PM CDT [facility] PLATELET COUNT 306 140 - 440 10(3)/mcL 05/09/2025 12:59 PM CDT [facility] RDW 13.8 11.8 - 15.5 % 05/09/2025 12:59 PM CDT [facility] MPV 10.1 9.7 - 12.4 fL 05/09/2025 12:59 PM CDT [facility] NEUTROPHILS 44.3(L) 47.0 - 73.0 % 05/09/2025 12:59 PM CDT [facility] LYMPHOCYTES 34.0 18.0 - 42.0 % 05/09/2025 12:59 PM CDT [facility] MONOCYTES 10.7 4.0 - 12.0 % 05/09/2025 12:59 PM CDT [facility] EOSINOPHILS 9.2(H) 0.0 - 5.0 % 05/09/2025 12:59 PM CDT [facility] BASOPHILS 1.6(H) 0.0 - 1.0 % 05/09/2025 12:59 PM CDT [facility] IMMATURE GRANULOCYTE 0.2 0.0 - 0.4 % 05/09/2025 12:59 PM CDT [facility] Comment:Immature Granulocyte s includes Metamyelocytes, Myelocytes, and Promyelocytes. ABSOLUTE NEUTROPHILS 1.98 1.60 - 7.70 10(3)/mcL 05/09/2025 12:59 PM CDT [facility] ABSOLUTE LYMPHOCYTES 1.52 1.30 - 3.20 10(3)/mcL 05/09/2025 12:59 PM CDT [facility] ABSOLUTE MONOCYTES 0.48 0.20 - 1.00 10(3)/mcL 05/09/2025 12:59 PM CDT [facility] ABSOLUTE EOSINOPHIL 0.41(H) 0.00 - 0.40 10(3)/mcL 05/09/2025 12:59 PM CDT [facility] ABSOLUTE BASOPHILS 0.07 0.00 - 0.10 10(3)/mcL 05/09/2025 12:59 PM CDT [facility] ABSOLUTE IMMATURE GRANULOCYTE 0.01 0.00 - 0.03 10 (3) mcL. 05/09/2025 12:59 PM CDT [facility] NRBC PER 100 WBC 0 05/09/20 12:59 PM CDT [facility] Blood Venipuncture / Unknown 05/09/2025 7:55 AM CDT 05/09/2025 7:55 AM CDT us Matteo Colon PAC HEMATOLOGY ORDERABLES Final Result [facility] [address] [place] [address] * (ABNORMAL) LIPID PANEL (05/09/2025 7:55 AM CDT) CHOLESTEROL 206(H) <200 mg/dL 05/09/2025 1:25 PM CDT [facility] TRIGLYCERIDES 64 <150 mg/dL 05/09/2025 1:25 PM CDT [facility] HDL CHOLESTEROL 56 >40 mg/dL 1:25 PM CDT [facility] LDL 137(H) <130 mg/dL 05/09/2025 1:25 PM CDT [facility] VLDL 13 10 - 50 mg/dL 05/09/2025 1:25 PM CDT [facility] CHOL/HDL RATIO 3.7 0.0 - 4.4 05/09/2025 1:25 PM CDT [facility] NON-HDL CHOLESTEROL 150(H) <130 mg/dL 05/09/2025 1:25 PM CDT [facility] IS THE PATIENT REQUIRED TO BE FASTING? Yes 05/09/2025 1:25 PM CDT [facility] HAS THE PATIENT BEEN FASTING? Yes 05/09/2025 1:25 PM CDT [facility] Blood Venipuncture / Unknown 05/09/2025 7:55 AM CDT 05/09/2025 7:55 AM CDT us Matteo Colon PAC CHEMISTRY ORDERABLES Final R esult [facility] [address] [place] [address] * CMP (COMPREHENSIVE METABOLIC PANEL) (05/09/2025 7:55 AM CDT) SODIUM 140 136 - 145 mmol/L 05/09/2025 1:25 PM CDT [facility] POTASSIUM 4.4 3.5 - 5.1 mmol/L 05/09/2025 1:25 PM CDT [facility] CHLORIDE 107 98 - 107 mmol/L 05/09/2025 1:25 PM CDT [facility] CO2, VENOUS 25 22 - 30 mmol/L 05/09/2025 1:25 PM CDT [facility] ANION GAP 12.4 <18.0 mmol/L 05/09/2025 1:25 PM CDT [facility] GLUCOSE 89 70 - 99 mg/dL 05/09/2025 1:25 PM CDT [facility] BUN 10 10 - 20 mg/dL 05/09/2025 1:25 PM CDT [facility] CREATININE, BLOOD 0.83 0.60 - 1.00 mg/dL 05/09/2025 1:25 PM CDT [facility] BUN/CREATININE RATIO 12 12 - 20 ratio 05/09/2025 1:25 PM CDT [facility] TOTAL PROTEIN 6.6 6.0 - 8.0 g/dL 05/09/2025 1:25 PM CDT [facility] ALBUMIN 3.9 3.5 - 5.0 g/dL 05/09/2025 1:25 PM CDT [facility] A/G RATIO 1.4 1.0 - 2.2 05/09/2025 1:25 PM CDT [facility] CALCIUM 8.7 8.7 - 10.5 mg/dL 05/09/2025 1:25 PM CDT [facility] T BILI 0.3 0.2 - 1.2 mg/dL 05/09/2025 1:25 PM CDT [facility] SGOT (AST) 23 <43 U/L 05/09/2025 1:25 PM CDT [facility] SGPT (ALT) 15 <56 U/L 05/09/2025 1:25 PM CDT [facility] ALKALINE PHOSPHATASE 95 40 - 150 U/L 05/09/2025 1:25 PM CDT [facility] IS THE PATIENT REQUIRED TO BE FASTING? Yes 05/09/2025 1:25 PM CDT [facility] HAS THE PATIENT BEEN FASTING? Yes 05/09/2025 1:25 PM CDT [facility] GFR, ESTIMATED >60 >=60 05/09/2025 1:25 PM CDT [facility] Comment: Creatinine Clearance is the preferred criteria for selecting drug dose adjustments in renally impaired patients. The GFR is provided as additional pertinent clinical information. GFR is reported in mL/min/1.73 sq m. Calculation based on the Chronic Kidney Disease Epidemiology Collaboration (CKD- EPI) equation refit without adjustment for race. GFR, EST. >60 >=60 025 1:25 PM CDT [facility] GFR, EST. NONAFRICAN >60 >=60 05/09/2025 1:25 PM CDT [facility] Blood Venipuncture / Unknown 05/09/2025 7:55 AM CDT 05/09/2025 7:55 AM CDT us Matteo Colon PAC CHEMISTRY ORDERABLES Final R esult Performing Organization Address [facility] Co de Phone Number [facility] [address] [place] [address] * MAMMOGRAM BILATERAL MISCELLANEOUS (11/21/2022 12:00 AM DRIER AND GRINDER TENDER) 11/21/2022 us Provider Scan IMG MAMMO ORDERABLES Final Resul t Performing Organization Address City/[facility]/ZIP Co de Phone Number SCAN * HM COLONOSCOPY (10/04/2022 12:00 AM DRIER AND GRINDER TENDER) 10/04/2022 us Not On File Provider PROCEDURE/MINOR SURGICAL OR DERABLES Final Result Performing Organization Address City/[facility]/ZIP Co de Phone Number SCAN * HM DEXA SCAN (11/09/2018) Anatomical Region Laterality Modality Other Rylee Jade MD [place] - IMAGING Final Resul t from Last 3 Months or Most Recently Relevant to Health Maintenance Insurance [employer] Care Teams Bindery Machine Feeder Offbearer Relationship Specialty Start Date End Date Matteo Colon, PAC [address] [place] [address] PCP - General Physician Combination Welder 05/05/25
--- OUTSIDE RECORDS SUMMARY | 2025-06-29 17:13 | XMS_ITS | Patient Health Record ---
Author Organization [employer] Address [address] [facility] [address] [place] [address] Care Team Providers Care Cafe Aide Name Role Phone Emily Gamez DO Primary Care Provider Tanya Ventura Unavailable [phone] Allergies Allergen (clinical drug ingredient) Drug/Non Drug Allergy documented on EMR Reaction Allergy Type Onset Date Status Codeine Phosphate Rapid heartrate Drug Allergy Active morphine Morphine Sulfate Nausea Drug Allergy Active Reason For Referral No Information Medications Medication SIG (Take, Route, Frequency, Duration) Notes Start Date End Date Status hydrOXYzine HCl Acti ve Orencia Active Lisinopril Active OTC/Vitamins Porter, Gerardo Red, Zinc, Citracal, MVI Active Hyoscyamine Sulfate ER 0.375 MG TAKE 1 TABLET BY MOUTH EVERY 12 HOURS Orally every 12 hrs for 90 days Active Famotidine 40 MG 1 tablet Orally Once a day for 90 days 07/06/2024 Active Celecoxib Active Escitalopram Oxalate Active buPROPion HCl Active Immunizations Vaccine Route Administration Date Status Comme nts Influenza Vaccination Unknown 08/03/2018 Administered Influenza Vaccination Unknown 10/02/2022 Refused Pneumococcal conjugate PCV 13 Unknown 10/02/2022 Refuse d Social History Tobacco Use: Social History Observation Description Date Details (start date - stop date) Former Smoker NA - NA Tobacco Use/Smoking Question Answer Notes Are you a former smoker How long has it been since you last smoked? > 10 years Problems Problem Type SNOMED Code ICD Code Onset Dates Problem Status W/U Status Risk Notes Problem 308006491 Left lower quadrant pain (R10.32) Active confirmed This is chronic . She has had 2 CTs and a colonoscopy without a diagnosis. Suspect this may be functional. However, will proceed with SIBO breath testing at patient convenience. Continue dicyclomine PRN for now. Problem 21859705 Heartburn (R12) Active confirmed Asymptomatic on Pepcid 40 mg daily. Problem 90101754 Weight loss (R63.4) Active confirmed This is concerning but testing has been negative for malignancy. Her weight loss is likely due to decreased PO intake Problem [id number] IBS (irritable bowel syndrome) (K58.9) Active confirmed On hyoscyamine BID her abdominal cramping/well-con trolled. Is having 3-4 soft to formed bowel movements/d. Lacks alarm features of mucus or blood in her stool. Intermittent episodes of diarrhea and symptoms subside with Lomotil. Problem 181742618 Change in bowel habits (R19.4) Active confirmed Increased constipation of recent. These symptoms may be secondary to her medications. Other considerations include irritable bowel syndrome, colon polyps, colonic malignancy, hypothyroidism, or other. Vital Signs Height 65 in 08/30/2024 Weight 180 lbs 08/30/2024 BMI 29.95 kg/m2 08/30/2024 Encounters Encounter Location Date Provider Diagnosis [facility], [address] [place] [address] 07/06/2024 Tanya Garcia Heartburn R12 ; IBS (irritable bowel syndrome) K58.9 and Encounter for screening for malignant neoplasm of colon Z12.11 [facility], [address] [place] [address] 08/30/2024 Tanya Garcia IBS (irritable bowel syndrome) K58.9 ; Heartburn R12 and Encounter for screening for malignant neoplasm of colon Z12.11 [facility], [address] [place] [address] 07/06/2024 Tanya Garcia Assessments Encounter Date Diagnosis (ICD Code) Assessment Notes Treatment Notes Treatment Clinical Notes Section Notes 07/06/2024 Heartburn (ICD-10 - R12) With eating fried/acidic foods is having midepigastric burning radiating to her chest several days a week. Symptoms subside with Rolaids. Denies burning sensation in her throat, regurgitation of food/acid, sour taste in mouth or chronic cough. Will start Pepcid 40 mg daily. Will take new GERD regiment for 2 to 3 months and make a follow-up office visit. If she continues to have symptoms we will proceed with an EGD. Reviewed GERD diet and lifestyle modifications. 07/06/2024 IBS (irritable bowel syndrome) (ICD-10 - K58.9) On hyoscyamine BID and daily fiber supplement is having 3-4 soft to formed BMs/d. Intermittently having diarrhea and symptoms subside with Lomotil. Lacks alarm features of mucus or blood in her stool. Will continue on hyoscyamine twice a day. She may use Lomotil as needed for chronic diarrhea. Recommended her to continue on a fiber supplement daily. 08/30/2024 Heartburn (ICD-10 - R12) Asymptomatic on Pepcid 40 mg daily. Will continue on Pepcid 40 mg daily. If breakthrough symptoms of acid reflux occur on Pepcid she will follow up with our office and will be switched to PPI and proceed with an EGD. Reviewed GERD diet and lifestyle modifications. 08/30/2024 IBS (irritable bowel syndrome) (ICD-10 - K58.9) On hyoscyamine BID her abdominal cramping/well-cont rolled. Is having 3-4 soft to formed bowel movements/d. Lacks alarm features of mucus or blood in her stool. Intermittent episodes of diarrhea and symptoms subside with Lomotil. Will continue on hyoscyamine twice a day. She may use Lomotil as needed for chronic diarrhea. Recommended her to continue on a fiber supplement daily. 08/30/2024 Encounter for screening for malignant neoplasm of colon (ICD-10 - Z12.11) 2021 colonoscopy was unremarkable and not recommended repeating due to age. Reviewed 2021 colonoscopy report, and she was not recommended to repeat due to age. 07/06/2024 Encounter for screening for malignant neoplasm of colon (ICD-10 - Z12.11) 2021 colonoscopy was unremarkable and not recommended repeating due to age. Reviewed 2021 colonoscopy report and she was not recommended to repeat due to age. 07/06/2024 Other Patient verbalized clear understanding of plan, recommendations, and all questions were answered. She will follow up with our office with any GI concerns going forward. She will sign a release form for recent blood work to be sent to our office for review and her records. She will make a follow-up office visit in 2 to 4 months. 08/30/2024 Lyla Grimm verbalize d clear understanding of plan, recommendations, and all questions were answered. She will follow up with our office with any GI concerns going forward. She will make a follow-up office visit in 6 months/once she returns from [place]. Plan Of Treatment Pending Test Test Name Order Date Colonoscopy 10/02/2022 Initiate SIBO 11/12/2022 Insurance Providers Payer Name Payer Address Payer Phone Subscriber Number Group Number Insured Name Patient Relationship to Insured Coverage Start Date Coverage End Date Medicare E2 [address] [address] [place] [address] [id number] WallsSirisha Self - patient is the insured Health Page [address] [place] [address] [id number] Plan F Titi Sirisha Self - patient is the insured Medical (General) History Medical History History ICD Code IBS Diverticulosis Colitis GERD Hemorrhoids Rheumatoid Arthritis Hypertension Surgical History Surgery Date(Month/Year) Colonoscopy 10/2022 Total Left Hip Replacement 2017 Right Shoulder, Tendon Repair 2001 Left Shoulder, Rotator Cuff 2000 Right Knee Arthroscopy Tonsillectomy Hospitalization History Reason Date(Month/Year) Colitis 2012
--- OUTSIDE RECORDS SUMMARY | 2025-06-29 17:13 | XMS_ITS | Encounter Summary ---
Author Organization [facility] Address [address] [place] [address] Phone Care Team Providers Care Alteration Inspector Name Role Phone Rylee Jade MD Primary Care Provider [phone] Emily Gamez DO Primary Care Provider [phone] Sarah Panchal FOUR CORNER STAYER MACHINE OPERATOR Unavailable Unavailab Matteo Juarez PAC Primary Care Provider + [phone] Leeanne Epstein RN Unavailable Unavailable Reason for Visit * Reason Comments Medication Refill Encounter Details Date Type Department Care Team (Late st Contact Info) Description 10/20/2023 Refill [facility] - Family Medicine [facility] [address] [place] [id number] [place] [id number] [phone] Medication Refill Social History Tobacco Use Types [...] Telephone Encounter - Sasha Ward RN - 10/20/2023 4:43 PM CST Medication failed the protocol, provider to review and approve the medication order if appropriate. Requested Prescriptions Pending Prescriptions Disp Refills escitalopram (LEXAPRO) 10 MG Tablet [Pharmacy Med Name: ESCITALOPRAM 10MG TABLETS] 90 Tablet 1 Sig: TAKE 1 TABLET BY MOUTH DAILY SSRI (6 Month Refill Only) Protocol Failed - 10/20/2023 3:36 PM Failed - Patient has established therapy with SSRI for at least 6 months Passed - Visit with relevant provider in past 6 months or upcoming 90 days Recent Visits Date Type Provider Dept 07/17/23 Office Visit Rylee Jade MD [facility] Showing recent visits within past 182 days and meeting all other requirements Future Appointments No visits were found meeting these conditions. Showing future appointments within next 90 days and meeting all other requirements Passed - Has an encounter in the past 6 months with a depression, anxiety, adjustment disorder, OCD, or PTSD visit diagnosis MAL ENGINEER documented in this encounter Plan of Treatment Upcoming Encounters Date Type Department Care Team (Late st Contact Info) Description 05/08/2026 8:00 AM CDT Lab [facility] [address] [place] [address] [facility] 05/15/2026 1:30 PM CDT Office Visit [facility] [address] [place] [address] Matteo Colon PAC [address] [place] [address] documented as of this encounter Visit Diagnoses Not on filedocumented in this encounter Additional Health Concerns Assessment Noted Time PHQ-9 Depression Total Score: 0 07/05/20 21 9:00 AM CDT documented as of this encounter Care Teams Alteration Inspector Relationship Specialty Start Date End Date Rylee Jade MD PCP - General Family Medicine 10/10/15 03/09/24 Emily Gamez DO [facility] [address] [place] [address] PCP - General Family Medicine 03/10/24 05/04/25 Matteo Colon, PAC [address] [place] [address] PCP - General Physician Trench Digger 05/05/25 Sarah Panchal, FOUR CORNER STAYER MACHINE OPERATOR [place] Color Worker Automation Engineer 12/06/24 12/06/24 Leeanne Epstein, RN [place] Nurse Automation Engineer 06/09/25 06/09/25 documented as of this encounter
--- OUTSIDE RECORDS SUMMARY | 2025-06-29 17:13 | XMS_ITS | Clinical Summary ---
Author Organization [facility] Address [address] [place] [address] Care Team Providers Care Home Comfort Advisor Name Role Phone Karrie Song MD Unavailable Emily Gamez DO Primary Care Provider [phone] Allergies Active Allergy Reactions Criticality Noted Date Comments Codeine Nausea & Vomiting,Nausea only,Vomiting Low Reaction: n, v, , , Morphine Nausea only,Vomiting Low Reaction: n, v, , Opioids - Morphine Analogues Medications hyoscyamine sulfate (LEVSINEX) 0.375 mg 12 hr capsule Take one by mouth one time per day 0 0 9 Active omega-3 fatty acids (LOVAZA) 1 gram capsule take 2 capsule (2G) by ORAL route 2 times every day 120 4 0 Active buPROPion SR (WELLBUTRIN SR) 150 mg 12 hr tablet take 1 tablet by oral route 2 times every day 0 0 4 Active olopatadine (PATADAY) 0.2 % ophthalmic solution instill 1 drop by ophthalmic route every day into affected eye(s) 0 0 4 Active aspirin 81 mg tablet take 1 tablet by oral route every day 0 0 4 Active omega-3 fatty qfprq-kxm-jrj (MEGARED MTDBH-HTDQQ-1) 300 mg capsule 300 mg. 0 0 4 Active multivitamin tablet tablet take 1 tablet by oral route every day with food 0 0 4 Active golimumab (SIMPONI ARIA) 12.5 mg/mL solution infuse (2MG/KG) by intravenous route every 8 weeks over 3 vial 10 7 Active albuterol HFA (PROVENTIL HFA,VENTOLIN HFA) 90 mcg/actuation inhaler Inhale. 7 Active diphenhydrAMINE (diphenhydrAMIN E) 25 mg capsule Take 25 mg by mouth. Active diphenoxylate-a tropine (LOMOTIL) 2.5-0.025 mg per tabletIndicatio ns:diarrhea Take by mouth. 5 Active fluticasone (FLONASE) 50 mcg/actuation nasal spray Administer into affected nostril(s). Active oseltamivir (TAMIFLU) 75 mg capsule Take 75 mg by mouth. 7 Active escitalopram (LEXAPRO) 10 mg tablet TAKE 1 TABLET BY MOUTH EVERY DAY 7 Active lisinopril (PRINIVIL,ZESTR IL) 5 mg tablet Take 5 mg by mouth. Active folic acid (FOLVITE) 1 mg tablet Take 1 tablet (1,000 mcg total) by mouth daily. 90 tablet 3 7 Active predniSONE (DELTASONE) 5 mg tablet Take 2 tabs x5 days,1 tab x5 days,0.5 tab x5 days 18 tablet 7 Active traMADol (ULTRAM) 50 mg tablet TAKE ONE TABLET BY MOUTH TWICE DAILY NEEDED FOR PAIN 60 tablet 8 Active celecoxib (CeleBREX) 200 mg capsule Take 1 capsule (200 mg total) by mouth 2 (two) times a day. 60 capsule 2 8 Active Active Problems Problem Noted Date Diagnosed Date Vitamin D deficiency 01/29/2018 Assessment & Plan (04/28/2018 1:38 PM CDT): Will check vit d level today Assessment & Plan (01/29/2018 12:51 PM CDT): Will check a Vit D level Encounter for long-term (current) use of medicat ions 09/18/2017 Overview (01/29/2018): Quant gold neg 04/2017 CXR neg 05/2017 Failed cimzia Assessment & Plan (06/24/2018 5:07 PM CDT): Will continue to monitor w/ routine labs Assessment & Plan (04/28/2018 1:41 PM CDT): Will continue to monitor w/ routine labs Assessment & Plan (01/29/2018 12:45 PM CDT): Will continue to monitor w/ routine labs. Will check quant gold today Assessment & Plan (10/13/2017 9:52 AM PRODUCTION RECORDER): Quant gold neg 04/22/17 cxr neg 05/19 (aorta atherosclerosis) Failed cimzia Lumbago 09/16/2017 Osteoarthritis of left hip 09/10/2017 Assessment & Plan (06/24/2018 5:07 PM CDT): S/p replacement. Doing well. Rheumatoid arthritis of [facility] without rheumatoid factor 04/17/2017 Assessment & Plan (06/24/2018 5:07 PM CDT): Patient disease activity is low. She has not been on any csDMARDs for months and remains stable. She appears to be in remission. We repeated her serologies in 04/20 which showed a +PSPT. The rest of her serologies were negative. Patient is to remain off her medications for now. Discussed repeating some of her xrays at her next visit as she had erosive changes on imaging in 04/15. Will check routine labs today. Follow up in 3 mo, sooner if needed Assessment & Plan (04/28/2018 1:40 PM CDT): Patient disease activity is low. She has been off all her meds for almost 2 mo for hip surgery. She states her joints are feeling good. Denies joint pain today and morning stiffness. Patient will remain off her medications for now. Since she has been off her medications, we will repeat an AVISE to monitor for changes in her serologies. Follow up in 3 mo, sooner if needed Assessment & Plan (01/29/2018 12:55 PM CDT): Patient disease activity is high on Simponi IV. She states her joints are starting to hurt a little bit more than usual. However, her hip is her main complaint today. She will be having her next Simponi infusion February 09, pending when hip surgery will be scheduled. Patient is to continue current regimen for now. She is seeing orthopedics tomorrow in regards to her hip. We will talk w/ orthopedics in regards to her medications. If she is getting surgery in the near future, she will not have her February 09 infusion. Given burden of disease, will administer triamcinolone shot today. Patient made aware of SE of triamcinolone injection including but not limited to HTN, increase blood glucose and osteopenia with jail use of steroids Will check routine labs along w/ a quant gold. Follow up in 3 mo, sooner if needed. Pt seen w/ Greer Randall PA-C Assessment & Plan (10/13/2017 11:26 AM PRODUCTION RECORDER): Over all her CDAI is low and she seems to be tolerating the Simponi. She is planning [place] going [place] and we are sending Simponi SQ inj with her and she will go there for two months. When she comes back she will restart the infusions. She recently had a steroid injection into the L hip and this seems to be helping. I am sending a course of prednisone with her to [place] in case she has a flare. 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 SSA/SSB ab negative on AVISE testing 04/20 Assessment & Plan (04/28/2018 1:38 PM CDT): Stable. Assessment & Plan (01/29/2018 12:46 PM CDT): Stable. Drug indicated 04/09/2012 Overview (02/07/2017): LONG-TERM USE MEDS NEC Adverse reaction to substance 01/09/2010 Overview (02/05/2017): ADV EFF MED/BIOL SUB NOS Resolved Problems Problem Noted Date Diagnosed Date Resolved Date Encounter for long-term (cur rent) use of other medications 04/17/2017 10/13/2017 Immunizations Immunization Administration Dates Next Due ZOSTER LIVE 08/03/2014 Surgical History Surgery Date Site/Laterality Comments OTHER SURGICAL HISTORY 11/03/2001 - 11/02/2002 tendon repair rt shoulder OTHER SURGICAL HISTORY 11/03/2004 - 11/02/2005 orthoscopic knee surgery--rt CARPAL TUNNEL RELEASE 11/03/2004 - 11/02/2005 Carpal tunnel release OPEN REDUCTION INTERNAL FIXATION 11/03/2000 - 11/02/2001 ORIF KNEE ARTHROCENTESIS Arthrocentesis of the right knee joint OTHER SURGICAL HISTORY Shoulder rotator cuff OTHER SURGICAL HISTORY shoulder tendon repair KNEE ARTHROSCOPY Arthroscopy knee Medical History Medical History Date Comments Hx Other Medical Posterior Vitre ous Detachment Smoking previous Family History Medical History Relation Name Comments Breast cancer Neg Hx Ovarian cancer Neg Hx Thyroid cancer Neg Hx Social History Tobacco Use Types Packs/Day Years Used Date Smoking Tobacco: Former Alcohol Use Standard Drinks/Week Comments Yes 0 (1 standard drink = 0.6 oz pur e alcohol) Comments No Sex and Gender Information Value Date Recorded Sex Assigned at Not on file Legal Sex Female 8:49 AM PRODUCTION RECORDER Gender Identity Not on file Sexual Orientation Not on file Obstetrics History Para Term AB IAB SAB Ectopic Multiple Livin g Live Births 3 3 3 Date Outcome GA Total Labor Labor/2nd/3rd Weight Sex Type Anes PTL Falguni A1 A5 Name Clin Term Term Term Last Filed Vital Signs Vital Sign Reading Time Taken Comments Blood Pressure 110/72 06/24/2018 1:39 PM CDT Pulse 78 06/24/2018 1:39 PM CDT Temperature - - Respiratory Rate - - Oxygen Saturation 98% 04/12/2016 2:35 PM CDT Inhaled Oxygen Concentration - - Weight 82.1 kg (181 lb) 06/24/2018 1:39 PM CDT Height 167.6 cm (5' 6) 06/16/2024 10:34 AM CDT Body Mass Index 30.12 02/17/2018 12:37 PM CDT Plan of Treatment Health Maintenance Due Date Last Done Comments Depression Screening 1945 Fall Risk Assessment 1945 Hepatitis C Screening 1945 Hepatitis B Screening 1964 Well Visit 65+ 2011 Osteoporosis Screening-Bone Density Scan 09/21/2015 09/21/2013 Covid-19 Vaccine (3 - Pfizer risk series) 02/15/2021 01/18/2021, 12/26/2020 Influenza Vaccine (#1) 2025 , 08/11/2020, 08/28/2019, Additional history exists DTaP/Tdap/Td Vaccine (4 - Td or Tdap) 01/29/2034 01/30/2024, 04/16/2021, 08/28/2019 Pneumococcal vaccine 65+ Completed 013, 07/24/2012, 07/24/2012 Zoster Vaccine Completed 12/04/2020, 1007/2020, 08/03/2014 Breast Cancer Screening-Mammogram Discontinued 06/16/2024, 11/21/2022, 10/12/2021, Additional history exists Procedures Procedure Name Priority Date/Time Associated Diagnosis Comments SCREENING MAMMOGRAM BILATERAL W DELVIS Schedule Routine, Read Routine (OP Routine) 06/16/2024 10:40 AM CDT Screening mammogram, encounter for DEXA AXIAL SKELETON BONE DENSITY 1 OR MORE SITES Routine 09/21/2013 1:22 PM PRODUCTION RECORDER from Last 3 Months or Most Recently Relevant to Health Maintenance Results * Screening Mammogram Bilateral W Delvis (06/16/2024 10:40 AM CDT) Anatomical Region Laterality Modality Breast Bilateral Mammography 06/16/2024 1:40 PM CDT Impressions 06/16/2024 1:40 PM CDT There is no mammographic evidence of malignancy. A 1 year screening mammogram is recommended. BI-RADS: 1 - Negative. The patient has been or will be contacted. The patient will be entered into a reminder system with a target due date of 1 year for her next mammogram. Electronically signed by: Khushi Pyle M.D. Narrative 06/16/2024 1:40 PM CDT EXAMINATION: SCREENING MAMMOGRAM BILATERAL W DELVIS ORDERING HEALTHCARE PROVIDER: SELF SCREENING MAMMOGRAM HISTORY: Routine screening mammography. COMPARISON: 11/21/2022, 10/12/2021, 08/30/2020, 03/02/2019 TECHNIQUE: CC and MLO views of the bilateral breasts were obtained with digital technique using breast tomosynthesis with C view. Computer aided detection was utilized. FINDINGS: DENSITY: There are scattered fibroglandular elements in the bilateral breasts. BREASTS: There are no suspicious masses, suspicious calcifications, or other suspicious findings in either breast. There has been no suspicious interval change. us Self Screening Mammogram IMG MAMMO PROCEDURES Fi nal Result * Dexa Axial Skeleton Bone Density 1 or 2 Site (09/21/2013 1:22 PM PRODUCTION RECORDER) Anatomical Region Laterality Modality Body N/A Radiographic Ani ging 09/21/2013 1:22 PM PRODUCTION RECORDER Narrative 09/21/2013 11:48 PM PRODUCTION RECORDER vm DEXA Bone Density Axial Acc#: [id number] DATE OF EXAM: Sep 21 2013 CLINICAL HISTORY: Post menopausal. Therapeutic drug monitoring. RESULT: DXA RIGHT HIP RESULTS SUMMARY: BMD (g/cm'b2) T-score Z-score Neck 0.880 0.3 1.9 Total 0.946 0.0 1.4 DXA LEFT HIP RESULTS SUMMARY: BMD (g/cm'b2) T-score Z-score Neck 1.014 1.5 3.1 Total 1.002 0.5 1.8 DXA L-SPINE RESULTS SUMMARY: BMD (g/cm'b2) T-score Z-score L1 1.346 3.2 4.9 L2 1.426 3.6 5.5 L3 1.370 2.6 4.6 L4 1.393 3.0 5.1 Total 1.384 3.1 5.0 IMPRESSION: 1. LEFT HIP/FEMORAL NECK T-SCORE +1.5; TOTAL +0.5; EACH AN INCREASE OF 0.1 COMPARED TO NOVEMBER 13; IN NORMAL RANGE. 2. RIGHT HIP/FEMORAL NECK T-SCORE +0.3; TOTAL 0.0; NORMAL; NOT MEASURED PREVIOUSLY. 3. LUMBAR SPINE T-SCORE +3.1; AN INCREASE FROM +2.5 ON NOVEMBER 13; IN NORMAL RANGE. COMMENT: W.H[place]O[facility] defines the T-score of between -1 and -2.5 as osteopenia, the level at which there may be an increased risk of developing osteoporosis and fractures in the future. Osteoporosis is defined as T-score lower than -2.5 (significantly increased risk of fracture due to osteoporosis). T-score is a comparison to peak bone mineral density of young adult reference population. Z-score is a comparison to bone mineral density of sex and age group population. Interpreting Physician: ELENI MARTINEZ M.D. Read on: Sep 21 2013 1:51P Transcribed by: [email or web address] On: Sep 21 2013 3:00P Approved Electronically by: ELENI MARTINEZ M.D. on: Sep 21 2013 11:48P Ordering DR: KARRIE SONG Attending DR: KARRIE SONG Procedure Note Provider, MD Suman - 02/26/2017 DEXA Bone Density Axial Acc#: [id number] DATE OF EXAM: Sep 21 2013 CLINICAL HISTORY: Post menopausal. Therapeutic drug monitoring. RESULT: DXA RIGHT HIP RESULTS SUMMARY: BMD (g/cm'b2) T-score Z-score Neck 0.880 0.3 1.9 Total 0.946 0.01.4 DXA LEFT HIP RESULTS SUMMARY: BMD (g/cm'b2) T-score Z-score Neck 1.014 1.5 3.1 Total 1.002 0.51.8 DXA L-SPINE RESULTS SUMMARY: BMD (g/cm'b2) T-score Z-score L1 1.346 3.2 4.9 L2 1.426 3.6 5.5 L31.370 2.6 4.6 L4 1.393 3.0 5.1 Total 1.384 3.1 5.0 IMPRESSION: 1. LEFT HIP/FEMORAL NECK T-SCORE +1.5; TOTAL +0.5; EACH AN INCREASE OF 0.1 COMPARED TO NOVEMBER 13; IN NORMAL RANGE. 2. RIGHT HIP/FEMORAL NECK T-SCORE +0.3; TOTAL 0.0; NORMAL; NOT MEASUREDPREVIOUSLY. 3. LUMBAR SPINE T-SCORE +3.1; AN INCREASE FROM +2.5 ON NOVEMBER 13; INNORMAL RANGE. COMMENT: W.H.O. defines the T-score of between -1 and -2.5 as osteopenia, thelevel at which there may be an increased risk of developing osteoporosisand fractures in the future. Osteoporosis is defined as T-score lowerthan -2.5 (significantly increased risk of fracture due to osteoporosis).T-score is a comparison to peak bone mineral density of young adultreference population. Z-score is a comparison to bone mineral density ofsex and age group population. Interpreting Physician: ELENI MARTINEZ M.D. Read on: Sep 21 20131:51P Transcribed by: [email or web address] On: Sep 21 2013 3:00P Approved Electronically by: ELENI MARTINEZ M.D. on: Sep 21 201311:48P Ordering DR: KARRIE SONG Attending DR: KARRIE SONG us Historical Provider MD TEMPLE DXA PROCEDURES Final Result from Last 3 Months or Most Recently Relevant to Health Maintenance Insurance [employer] MEDICARE [employer] MEDICARE [facility] Address: [address] [address] [place] [address] COMMERCIAL GENERIC [facility] [employer] Care Teams Home Comfort Advisor Relationship Specialty [place] [id number] [facility] [address] [place] [address] PCP - General Family Medicine 04/28/24 [place] [id number] [facility] [address] [place] [address] Rheumatology 06/04/17
== END 2025-06-29 17:04 | disposition home or self-care (01) ==
LOC: ANHLAB 17:10
PROVIDERS: Visit Provider Surgery Plastic and Reconstructive Surgery
DX: S81.001A Unspecified open wound, right knee, initial encounter (principal); X58.XXXA Exposure to other specified factors, initial encounter
CPT/HCPCS: 87070; 87075